=== PATIENT | male | born 1945 | race Caucasian/White ===

== ENCOUNTER 2020-02-25 09:38 | Inpatient (IN) ==
[2020-02-25 11:11] LABS: Basophils % 0.2 % (0.0-0.8); Eosinophils % 0.2 % (0.00-10.9); Hematocrit 39.9 VOL% (42.0-52.0); Hemoglobin 14.6 GM/DL (14.0-18.0); Immature Granulocytes % 0.4 %; Immature Granulocytes Absolute 0.02 #; Lymphocytes # 0.4 10*3/uL (1.4-4.0); Lymphocytes % 8.4 % (21.2-54.2); Mean Corpuscular HGB Conc 36.6 GM/DL (32-36); Mean Corpuscular Volume 85.6 FL (87-102); Mean Platelet Volume 9.6 FL (9.6-12.0); Monocytes % 8.2 % (1.7-12.7); Neutrophils % 82.6 % (38.7-73.9); Platelet Count 213 T/CUMM (130-400); Red Blood Count 4.66 MC/CUMM (3.8-5.5); Red Cell Distribution Width 12.2 % (9.3-17.3)
[2020-02-25 11:34] LABS: Alanine Aminotransferase 39 U/L (16-61); Albumin 2.8 G/DL (3.4-5.0); Alkaline Phosphatase 78 U/L (45-117); Aspartate Amino Transferase 37 U/L (0-37); Blood Urea Nitrogen 23 MG/DL (7-18); Estimated Glom Filtration Rate 39 ML/MIN; Ferritin 1130.6 ng/ml (26-388); Glucose 316 MG/DL (74-106); Osmolality,Calculated 270.2 MOS/KG (273-304); Total Protein 6.7 G/DL (6.4-8.3)
[2020-02-25] MEDS ORDERED: cefTRIAXone 1,000 MG in SODIUM CHLORIDE 0.9% 100 ML IV STA (12:10)
[2020-02-25] MEDS ORDERED: AZITHROMYCIN 250 MG TABLET PO STA (12:10)
[2020-02-25 12:34] LABS: Bilirubin,Urine Negative (Negative); Blood, Urine Negative (Negative); Glucose,Urine (UA) >=500 mg/dL (Negative); Hyaline Casts,Urine 12 /LPF (0-3); Ketones,Urine 5 mg/dL (Negative); Mucus,Urine Occasional /LPF (Occasional); Nitrite,Urine Negative (Negative); Protein,Urine 30 MG/DL; RBC,Urine 1 /HPF (0-4); Squamous Epithelial Cell,Urine Occasional /HPF (0-10); Urine Appearance CLEAR (Clear); Urine Color Amber (Yellow); Urine Specific Gravity 1.018 (1.001-1.035); WBC,Urine 1 /HPF (0-6)
[2020-02-25] MEDS ORDERED: PROMETHAZINE 25 MG/1 ML VIAL IM PRN (12:45)
[2020-02-25] MEDS ORDERED: DEXTROSE 50% 25 GM/50 ML VIAL IV PRN ×2 (12:45)
[2020-02-25] MEDS ORDERED: SODIUM CHLORIDE 0.9% 1,000 ML IV STA (12:45)
[2020-02-25] MEDS ORDERED: ACETAMINOPHEN 325 MG TABLET PO PRN (12:45)
[2020-02-25] MEDS ORDERED: ONDANSETRON 4 MG/2 ML VIAL IV PRN (12:45)
[2020-02-25] MEDS ORDERED: GLUCAGON 1 MG VIAL IM PRN ×2 (12:45)
[2020-02-25] MEDS ORDERED: hydrALAZINE 20 MG/1 ML VIAL IV PRN (12:45)
[2020-02-25] MEDS ORDERED: POTASSIUM CHLORIDE 20 MEQ TABLET PO STA (12:45)
[2020-02-25] MEDS ORDERED: AZITHROMYCIN INJ 500 MG in SODIUM CHLORIDE 0.9% 250 ML IV SCH (13:00)
[2020-02-25] MEDS ORDERED: INSULIN LISPRO 100 UNIT/ML SUBCUT SCH (14:00)
[2020-02-25] MEDS: cefTRIAXone 1,000 MG in SYRINGE 1 EACH IV SCH (14:00)
[2020-02-25] MEDS: SODIUM CHLORIDE 0.9% 1,000 ML IV SCH ×2 (14:53→21:05)
[2020-02-25] MEDS: ZINC SULFATE 220 MG CAPSULE PO SCH (16:26)
[2020-02-25] MEDS: ASCORBIC ACID 500 MG TABLET PO SCH ×2 (16:26→21:47)
[2020-02-25] MEDS: ENOXAPARIN 120 MG/0.8 ML SYRINGE SUBCUT SCH (18:31)
[2020-02-25] MEDS: INSULIN LISPRO 100 UNIT/ML SUBCUT SCH ×3 (18:31→21:47)
[2020-02-25] MEDS ORDERED: PHENOL 1.4% THROAT SPRAY 177 ML BOTTLE PO PRN (20:05)
[2020-02-25] MEDS ORDERED: INSULIN GLARGINE 100 UNIT/ML SUBCUT SCH (21:00)
[2020-02-26] MEDS: INSULIN LISPRO 100 UNIT/ML SUBCUT SCH ×6 (03:00→22:18)
[2020-02-26 03:40] LABS: Basophils % 0.2 % (0.0-0.8); Eosinophils % 0.8 % (0.00-10.9); Hematocrit 31.3 VOL% (42.0-52.0); Hemoglobin 11.6 GM/DL (14.0-18.0); Immature Granulocytes % 0.6 %; Immature Granulocytes Absolute 0.03 #; Lymphocytes # 0.8 10*3/uL (1.4-4.0); Lymphocytes % 15.7 % (21.2-54.2); Mean Corpuscular HGB Conc 37.1 GM/DL (32-36); Mean Corpuscular Volume 84.4 FL (87-102); Mean Platelet Volume 9.8 FL (9.6-12.0); Monocytes % 11.2 % (1.7-12.7); Neutrophils % 71.5 % (38.7-73.9); Platelet Count 243 T/CUMM (130-400); Red Blood Count 3.71 MC/CUMM (3.8-5.5); White Blood Count 5.3 T/CUMM (4-12)
[2020-02-26 04:10] LABS: Albumin 2.3 G/DL (3.4-5.0); Bilirubin,Total 1.8 MG/DL (0.2-1.0); Calcium 7.8 MG/DL (8.5-10.1); Osmolality,Calculated 273.1 MOS/KG (273-304); Risk Ratio 5.67; Total Protein 6.4 G/DL (6.4-8.3)
[2020-02-26 04:14] LABS: Calcium 7.8 MG/DL (8.5-10.1); Ferritin 924.7 ng/ml (26-388); Osmolality,Calculated 273.1 MOS/KG (273-304)
[2020-02-26] MEDS: SODIUM CHLORIDE 0.9% 1,000 ML IV SCH ×3 (05:40→16:40)
[2020-02-26] MEDS ORDERED: DEXAMETHASONE INJ 6 MG in SODIUM CHLORIDE 0.9% 50 ML IV SCH (09:00)
[2020-02-26] MEDS: DEXAMETHASONE 4 MG/1 ML VIAL IV SCH (09:46)
[2020-02-26] MEDS: ASCORBIC ACID 500 MG TABLET PO SCH ×2 (09:46→22:01)
[2020-02-26] MEDS: PANTOPRAZOLE 40 MG TABLET PO SCH (09:46)
[2020-02-26] MEDS: ZINC SULFATE 220 MG CAPSULE PO SCH (09:46)
[2020-02-26] MEDS ORDERED: MAGNESIUM SULF RIDER 4 GM in PREMIX 1 EACH IV ONE (09:47)
[2020-02-26] MEDS ORDERED: POTASSIUM CHLORIDE 20 MEQ TABLET PO ONE (09:47)
[2020-02-26] MEDS ORDERED: SODIUM CHLORIDE 0.9% 1,000 ML IV PRN (10:11)
[2020-02-26] MEDS ORDERED: INSULIN GLARGINE 100 UNIT/ML SUBCUT SCH (16:25)
[2020-02-26] MEDS: cefTRIAXone 1,000 MG in SYRINGE 1 EACH IV SCH (16:45)
[2020-02-26] MEDS: AZITHROMYCIN INJ 500 MG in SODIUM CHLORIDE 0.9% 250 ML IV SCH (16:50)
[2020-02-26] MEDS: ENOXAPARIN 120 MG/0.8 ML SYRINGE SUBCUT SCH (16:55)
[2020-02-26] MEDS: LOPERAMIDE 2 MG CAPSULE PO PRN (22:02)
[2020-02-27] MEDS: SODIUM CHLORIDE 0.9% 1,000 ML IV SCH ×2 (02:02→09:01)
[2020-02-27] MEDS: INSULIN LISPRO 100 UNIT/ML SUBCUT SCH ×4 (02:09→14:30)
[2020-02-27] MEDS: DEXAMETHASONE 4 MG/1 ML VIAL IV SCH (09:01)
[2020-02-27] MEDS: PANTOPRAZOLE 40 MG TABLET PO SCH (09:02)
[2020-02-27] MEDS: ASCORBIC ACID 500 MG TABLET PO SCH (09:02)
[2020-02-27] MEDS: ZINC SULFATE 220 MG CAPSULE PO SCH (09:02)
[2020-02-27] MEDS: LOPERAMIDE 2 MG CAPSULE PO PRN (09:02)
[2020-02-27 11:26] VITALS: BP 134/63
[2020-02-27] MEDS: AZITHROMYCIN INJ 500 MG in SODIUM CHLORIDE 0.9% 250 ML IV SCH (14:30)
[2020-02-27] MEDS: cefTRIAXone 1,000 MG in SYRINGE 1 EACH IV SCH (14:30)
== END 2020-02-27 14:25 | disposition home or self-care (01) | DRG 177 ==
LOC: N.ED 09:38 → N.EDINP 12:45 → N.2E 13:23
PROVIDERS: ADMIT Internal Medicine; ATTEND Internal Medicine